=== PATIENT | female | born 1945 | race Caucasian/White ===

== ENCOUNTER → 2017-08-21 | Outpatient (CLI) | payer MEDICARE ==
[~2017-08-21] MED LIST: ACET325T14 PO; ASPI-496 PO; ATOR10TA PO; CYCL1DRO EACHEYE; LISI-170 PO; MULT-464 PO; OMEP20CA9 PO; SENN-52 PO; TIOT18CA INH
== END | disposition home or self-care (01) ==
LOC: CFH 09:53
PROVIDERS: ATTEND Registered Nurse
DX: J43.2 Centrilobular emphysema (principal); I70.0 Atherosclerosis of aorta; I70.90 Unspecified atherosclerosis; N28.1 Cyst of kidney, acquired; M85.80 Other specified disorders of bone density and structure, unspecified site; D17.79 Benign lipomatous neoplasm of other sites; Z85.118 Personal history of other malignant neoplasm of bronchus and lung; Z98.890 Other specified postprocedural states
CPT/HCPCS: 71250

== ENCOUNTER → 2017-09-11 | Outpatient (CLI) | payer MEDICARE ==
[~2017-09-11] MED LIST changes: +REGADENOSON 0.4 MG/5 ML SYRINGE ONE
== END | disposition home or self-care (01) ==
LOC: RAD 08:20
PROVIDERS: ATTEND Internal Medicine Cardiovascular Disease
DX: I07.1 Rheumatic tricuspid insufficiency (principal); E78.5 Hyperlipidemia, unspecified; J44.9 Chronic obstructive pulmonary disease, unspecified; Z87.891 Personal history of nicotine dependence; Z85.118 Personal history of other malignant neoplasm of bronchus and lung
CPT/HCPCS: 78452; 93017; 93306; A9502; J2785

== ENCOUNTER → 2018-03-12 | Outpatient (CLI) | payer MEDICARE ==
[~2018-03-12] MED LIST changes: -REGADENOSON 0.4 MG/5 ML SYRINGE ONE
== END | disposition home or self-care (01) ==
LOC: CFH 11:08
PROVIDERS: ATTEND Nurse Practitioner Primary Care
DX: Z12.31 Encounter for screening mammogram for malignant neoplasm of breast (principal)
CPT/HCPCS: 77067

== ENCOUNTER → 2018-07-18 | Outpatient (CLI) | payer MEDICARE | END | disposition home or self-care (01) | LOC: CFH 09:32 | PROVIDERS: ATTEND Internal Medicine Critical Care Medicine | DX: J43.2 Centrilobular emphysema (principal); R91.1 Solitary pulmonary nodule; Z85.118 Personal history of other malignant neoplasm of bronchus and lung | CPT/HCPCS: 71250 ==

== ENCOUNTER 2019-03-09 13:57 | Outpatient (CLI) | payer MEDICARE | END 2019-03-09 23:59 | disposition home or self-care (01) | LOC: WOUND 13:57 | PROVIDERS: ATTEND Internal Medicine | DX: I87.312 Chronic venous hypertension (idiopathic) with ulcer of left lower extremity (principal); L97.222 Non-pressure chronic ulcer of left calf with fat layer exposed; L03.116 Cellulitis of left lower limb; E78.5 Hyperlipidemia, unspecified; J44.9 Chronic obstructive pulmonary disease, unspecified; M81.0 Age-related osteoporosis without current pathological fracture; K21.9 Gastro-esophageal reflux disease without esophagitis; Z87.891 Personal history of nicotine dependence; Z90.710 Acquired absence of both cervix and uterus; Z85.118 Personal history of other malignant neoplasm of bronchus and lung | CPT/HCPCS: 11042; G0463 ==

== ENCOUNTER 2019-03-16 14:34 | Outpatient (CLI) | payer MEDICARE | END 2019-03-16 23:59 | disposition home or self-care (01) | LOC: WOUND 14:34 | PROVIDERS: ATTEND Internal Medicine | DX: I87.312 Chronic venous hypertension (idiopathic) with ulcer of left lower extremity (principal); L97.222 Non-pressure chronic ulcer of left calf with fat layer exposed; L03.116 Cellulitis of left lower limb; E78.5 Hyperlipidemia, unspecified; J44.9 Chronic obstructive pulmonary disease, unspecified; M81.0 Age-related osteoporosis without current pathological fracture; K21.9 Gastro-esophageal reflux disease without esophagitis; Z87.891 Personal history of nicotine dependence; Z90.710 Acquired absence of both cervix and uterus; Z85.118 Personal history of other malignant neoplasm of bronchus and lung | CPT/HCPCS: 97597 ==

== ENCOUNTER 2019-04-06 10:57 | Outpatient (CLI) | payer MEDICARE | END 2019-04-06 23:59 | disposition home or self-care (01) | LOC: WOUND 10:57 | PROVIDERS: ATTEND Internal Medicine | DX: I87.312 Chronic venous hypertension (idiopathic) with ulcer of left lower extremity (principal); L97.222 Non-pressure chronic ulcer of left calf with fat layer exposed; L03.116 Cellulitis of left lower limb; E78.5 Hyperlipidemia, unspecified; J44.9 Chronic obstructive pulmonary disease, unspecified; M81.0 Age-related osteoporosis without current pathological fracture; K21.9 Gastro-esophageal reflux disease without esophagitis; Z87.891 Personal history of nicotine dependence; Z90.710 Acquired absence of both cervix and uterus; Z85.118 Personal history of other malignant neoplasm of bronchus and lung | CPT/HCPCS: 15271; Q4101 ==

== ENCOUNTER 2019-08-05 12:46 | Outpatient (CLI) | payer MEDICARE | END 2019-08-05 23:59 | disposition home or self-care (01) | LOC: CFH 12:46 | PROVIDERS: ATTEND Registered Nurse | DX: J43.2 Centrilobular emphysema (principal); J96.11 Chronic respiratory failure with hypoxia; R91.8 Other nonspecific abnormal finding of lung field; N28.89 Other specified disorders of kidney and ureter; Z85.118 Personal history of other malignant neoplasm of bronchus and lung | CPT/HCPCS: 71250 ==

== ENCOUNTER 2019-09-09 10:03 | Day surgery (SDC) | payer MEDICARE ==
[~2019-09-09] VITALS: Ht 149.9 cm; Wt 58.2 kg
[2019-09-09 10:30] VITALS: BP 142/80
[2019-09-09] MEDS ORDERED: SODIUM CHLORIDE 0.9% 1,000 ML IV ONE (10:36)
[2019-09-09] MEDS ORDERED: FENTANYL PF 100 MCG/2ML ONE ×2 (11:38→11:39)
[2019-09-09] MEDS ORDERED: NALOXONE 1 MG/ML, 2ML ONE (11:39)
[2019-09-09] MEDS ORDERED: FLUMAZENIL 0.1 MG/1 ML, 5ML ONE (11:39)
[2019-09-09] MEDS ORDERED: MIDAZOLAM 1 MG/ML, 5ML ONE (11:39)
[2019-09-09] MEDS ORDERED: LIDOCAINE 1%, 10ML ONE (12:52)
[2019-09-09] MEDS ORDERED: HYDROcodone/APAP 5/325 TABLET ONE (14:53)
[2019-09-09] MEDS ORDERED: HYDROcodone/APAP 5/325 TABLET PO ONE (15:00)
== END 2019-09-09 18:00 | disposition home or self-care (01) ==
LOC: OUT 10:03 → EDSTATUS 12:00 → OUT 18:00
PROVIDERS: ATTEND Registered Nurse
DX: J98.4 Other disorders of lung (principal); I10 Essential (primary) hypertension; J44.9 Chronic obstructive pulmonary disease, unspecified; E78.5 Hyperlipidemia, unspecified; E66.9 Obesity, unspecified; I65.23 Occlusion and stenosis of bilateral carotid arteries; E78.49 Other hyperlipidemia; F17.210 Nicotine dependence, cigarettes, uncomplicated; Z85.118 Personal history of other malignant neoplasm of bronchus and lung; Z79.899 Other long term (current) drug therapy; Z88.5 Allergy status to narcotic agent; Z68.28 Body mass index [BMI] 28.0-28.9, adult
CPT/HCPCS: 32405; 32557; 71045; 77012; 88172; 88305; 99156; 99157; C1729; J2250; J3010; J7030; J2310

== ENCOUNTER 2019-09-12 09:03 | Outpatient (CLI) | payer MEDICARE ==
[2019-09-15] MEDS ORDERED: ACET325T26 PO ×2 (11:52)
== END 2019-09-12 23:59 | disposition home or self-care (01) ==
LOC: RAD 09:03
PROVIDERS: ATTEND Radiology Diagnostic Radiology
DX: J98.4 Other disorders of lung (principal)
CPT/HCPCS: 71045

== ENCOUNTER → 2020-11-30 | Outpatient (CLI) | payer MEDICARE ==
[~2020-11-30] MED LIST changes: +ACET325T26 PO; +ALBU0.63 NEB; +ALEN70TA77 PO; +AMLO-150 PO; +CALC-451 PO; +METH-639 PO; +OXYC1TAB17 PO; +biotin
== END | disposition home or self-care (01) ==
LOC: CFH 10:22
PROVIDERS: ATTEND Registered Nurse
DX: Z12.2 Encounter for screening for malignant neoplasm of respiratory organs (principal); F17.211 Nicotine dependence, cigarettes, in remission; J43.9 Emphysema, unspecified; I70.0 Atherosclerosis of aorta; I25.10 Atherosclerotic heart disease of native coronary artery without angina pectoris; N28.1 Cyst of kidney, acquired; M85.88 Other specified disorders of bone density and structure, other site; J98.4 Other disorders of lung; R91.1 Solitary pulmonary nodule
CPT/HCPCS: 71271

== ENCOUNTER 2020-12-01 21:42 | Inpatient (IN) | payer MEDICARE ==
[~2020-12-01] VITALS: Ht 144.8 cm; Wt 62.5 kg
[~2020-12-01 21:42] MED LIST changes: -ALBU0.63 NEB; -ALEN70TA77 PO; -AMLO-150 PO; -CALC-451 PO; -METH-639 PO; -OXYC1TAB17 PO; -biotin
[2020-12-01] MEDS ORDERED: SODIUM CHLORIDE 0.9% 1,000 ML IV ONE (22:00)
[2020-12-01] MEDS ORDERED: SODIUM CHLORIDE FLUSH 10ML SYR IVF ONE (22:00)
--- NOTE | 2020-12-01 22:19 | NUR ---
Labs drawn, IV large bore placed, lab here for pink top. Pt awake alert and oriented, stool ob negative chapperoned dr page for rectal.
[2020-12-01 22:22] LABS: MEAN CORPUSCULAR HEMOGLOBIN 16.6 pg (27.0-34.8); MEAN PLATELET VOLUME 8.6 fL (7.4-10.4); PLATELET COUNT 408 x10^3/uL (130-400); RED BLOOD COUNT 3.11 x10^6/uL (3.82-5.3); RED CELL DISTRIBUTION WIDTH 19.7 % (9.6-15.2)
[2020-12-01 22:34] LABS: ALANINE AMINOTRANSFERASE 14 U/L (12-78); ALBUMIN 3.6 g/dL (3.4-5.0); ANION GAP 8 mmol/L (5-15); CALCIUM 8.9 mg/dL (8.5-10.1); CHLORIDE 110 mmol/L (98-107); CREATININE 0.85 mg/dL (0.55-1.02)
[2020-12-01] MEDS ORDERED: AMLO-150 PO (22:35)
[2020-12-01] MEDS ORDERED: METH-639 PO (22:35)
[2020-12-01] MEDS ORDERED: biotin (22:35)
[2020-12-01] MEDS ORDERED: CALC-451 PO (22:35)
[2020-12-01] MEDS ORDERED: ALBU0.63 NEB (22:35)
[2020-12-01] MEDS ORDERED: ALEN70TA77 PO (22:35)
[2020-12-01] MEDS ORDERED: OXYC1TAB17 PO (22:35)
[2020-12-01 22:36] LABS: ALKALINE PHOSPHATASE 48 U/L (45-117); BILIRUBIN,TOTAL 0.2 mg/dL (0.2-1.0); TOTAL PROTEIN 6.5 g/dL (6.4-8.2)
[2020-12-01 22:44] LABS: MD YES; MEAN CORPUSCULAR HGB CONC 28.4 g/dL (32.4-35.8)
[2020-12-01 22:58] LABS: PROTHROMBIN TIME 10.7 Seconds (9.6-11.5)
[2020-12-01 23:01] LABS: ANISOCYTOSIS 1+; BAND#(MANUAL) 0.07 x10^3/uL; BANDS%(MANUAL) 1 % (0-7); BASOS#(MANUAL) 0.07 x10^3/uL (0-0.1); BASOS% (MANUAL) 1 % (0-1); EOS#(MANUAL) 0.44 x10^3/uL (0.0-0.4); EOS% (MANUAL) 6 % (1-7); HYPOCHROMIA 2+; LYMPH#(MANUAL) 1.41 x10^3/uL (1-3.4); LYMPHS% (MANUAL) 19 % (22-44); METAMYELOCYTES# (MANUAL) 0.15 x10^3/uL (0-0); METAMYELOCYTES% (MANUAL) 2 % (0-1); MICROCYTOSIS 2+; MONOS#(MANUAL) 0.22 x10^3/uL (0.3-2.7); MONOS% (MANUAL) 3 % (2-9); MYELOCYTES# (MANUAL) 0.07 x10^3/uL (0-0); MYELOCYTES% (MANUAL) 1 % (0-0); POLYCHROMASIA 1+; REACTIVE LYMPHS # (MANUAL) 0.15 x10^3/uL (0-0); REACTIVE LYMPHS % (MANUAL) 2 % (0-0); SEG#(MANUAL) 4.81 x10^3/uL (1.8-6.8); SEGS% (MANUAL) 65 % (42-75)
[2020-12-01 23:03] LABS: ECHINOCYTES 1+; OVALOCYTES 1+; SCHISTOCYTES 1+; TARGET CELLS 1+; TEAR DROPS 1+
[2020-12-01 23:04] LABS: <PLATELET ESTIMATE> INCREASED; LARGE PLATELETS 1+
--- NOTE | 2020-12-01 23:29 | NUR ---
Pt signed consent for blood tx,, ERP signed.. Waiting for cross matched blood, VSS.
[2020-12-01 23:53] LABS: PARTIAL THROMBOPLASTIN TIME < 23 Seconds (25-31)
[2020-12-01 23:56] LABS: ABSOLUTE RETICS # 0.067 x10^6/uL (0.5-2.5); RED BLOOD COUNT 3.07 x10^6/uL (3.82-5.3); RETICULOCYTE COUNT % 2.18 % (0.5-1.5)
[2020-12-02] VITALS (12 sets, daily range): BP systolic 137–160; BP diastolic 57–67
[2020-12-02] MEDS ORDERED: MELATONIN 5 MG TABLET PO PRN
[2020-12-02] MEDS ORDERED: ACETAMINOPHEN 325 MG TABLET PO PRN
[2020-12-02] MEDS ORDERED: ENALAPRILAT 1.25 MG/ML, 2ML IVPush PRN
[2020-12-02] MEDS ORDERED: DOCUSATE 100 MG CAPSULE PO PRN
--- NOTE | 2020-12-02 00:16 | NUR ---
2ND IV INFILTRATED, very very large hematoma to left hand. Pressure dressing applied, informed latoya onc rn to keep eye on it. Successful 2nd IV to left ac 18ga.
[2020-12-02] MEDS ORDERED: ATORVASTATIN 10 MG TABLET PO SCH (00:30)
[2020-12-02] MEDS ORDERED: ALBUTEROL SULFATE 2.5 MG/3 ML NEB PRN (00:30)
[2020-12-02 05:56] LABS: MEAN CORPUSCULAR HEMOGLOBIN 18.6 pg (27.0-34.8); MEAN PLATELET VOLUME 8.4 fL (7.4-10.4); PLATELET COUNT 339 x10^3/uL (130-400); RED BLOOD COUNT 3.32 x10^6/uL (3.82-5.3); RED CELL DISTRIBUTION WIDTH 23.4 % (9.6-15.2)
[2020-12-02 06:09] LABS: MD YES; MEAN CORPUSCULAR HGB CONC 29.8 g/dL (32.4-35.8)
[2020-12-02] MEDS ORDERED: ALENDRONATE 70 MG TABLET PO SCH (06:30)
[2020-12-02 06:37] LABS: <PLATELET ESTIMATE> ADEQUATE; ANISOCYTOSIS 1+; BAND#(MANUAL) 0.07 x10^3/uL; BANDS%(MANUAL) 1 % (0-7); BASOS#(MANUAL) 0.07 x10^3/uL (0-0.1); BASOS% (MANUAL) 1 % (0-1); EOS#(MANUAL) 0.21 x10^3/uL (0.0-0.4); EOS% (MANUAL) 3 % (1-7); LYMPH#(MANUAL) 1.17 x10^3/uL (1-3.4); LYMPHS% (MANUAL) 17 % (22-44); MICROCYTOSIS 2+; MONOS#(MANUAL) 0.55 x10^3/uL (0.3-2.7); MONOS% (MANUAL) 8 % (2-9); OVALOCYTES 1+; POLYCHROMASIA 1+; SEG#(MANUAL) 4.83 x10^3/uL (1.8-6.8); SEGS% (MANUAL) 70 % (42-75); TEAR DROPS 1+
[2020-12-02 06:38] LABS: LARGE PLATELETS 1+
[2020-12-02 06:39] LABS: HYPOCHROMIA 3+
[2020-12-02 06:43] LABS: TARGET CELLS 1+
[2020-12-02] MEDS: OXYcodone/APAP 7.5/325MG TABLET PO SCH ×4 (06:48→21:08)
[2020-12-02] MEDS: MULTIVITAMINS/MINERALS TABLET PO SCH (08:35)
[2020-12-02] MEDS: ASPIRIN 81 MG TABLET EC PO SCH (08:35)
[2020-12-02] MEDS: AMLODIPINE 5 MG TABLET PO SCH (08:36)
[2020-12-02] MEDS: LISINOPRIL 20 MG TABLET PO SCH (08:36)
[2020-12-02] MEDS: METHOCARBAMOL 500 MG TABLET PO SCH ×2 (08:36→21:08)
[2020-12-02] MEDS: CALCIUM/VITAMIN D3 250-125 TABLET PO SCH (08:36)
[2020-12-02] MEDS ORDERED: OMEPRAZOLE 20 MG CAPSULE.DR PO SCH (09:00)
[2020-12-02] MEDS: IRON SUCROSE COMPLEX 100MG/5ML IV SCH (12:00)
[2020-12-02] MEDS ORDERED: CALCIUM CARBONATE 500 MG TAB.CHEW PO PRN (12:00)
[2020-12-02] MEDS ORDERED: GOLYTELY 4,000ML ORAL.SOL PO ONE (14:00)
[2020-12-02 17:43] LABS: OCCULT BLOOD POSITIVE (NEGATIVE)
[2020-12-02] MEDS: OMEPRAZOLE 20 MG CAPSULE.DR PO SCH (21:09)
[2020-12-03 00:42] LABS: OCCULT BLOOD POSITIVE (NEGATIVE)
[2020-12-03 02:26] VITALS: BP 152/63
[2020-12-03] MEDS: OXYcodone/APAP 7.5/325MG TABLET PO SCH ×4 (05:23→16:00)
[2020-12-03 06:12] LABS: BASOPHILS % (AUTO) 1 % (0-1); EOSINOPHILS % (AUTO) 3 % (1-7); LYMPHOCYTES % (AUTO) 22 % (22-44); MEAN CORPUSCULAR HEMOGLOBIN 20.6 pg (27.0-34.8); MEAN CORPUSCULAR HGB CONC 31.1 g/dL (32.4-35.8); MEAN PLATELET VOLUME 8.5 fL (7.4-10.4); MONOCYTES % (AUTO) 11 % (2-9); NEUTROPHILS % (AUTO) 63 % (42-75); PLATELET COUNT 319 x10^3/uL (130-400); RED BLOOD COUNT 3.98 x10^6/uL (3.82-5.3); RED CELL DISTRIBUTION WIDTH 26.8 % (9.6-15.2)
[2020-12-03 07:02] LABS: MD MORPH REVIEW ONLY
[2020-12-03 07:31] LABS: ANISOCYTOSIS 2+; HYPOCHROMIA 3+; MICROCYTOSIS 2+; OVALOCYTES 1+
[2020-12-03 07:32] LABS: STOMATOCYTES 1+
[2020-12-03 07:33] LABS: <PLATELET ESTIMATE> ADEQUATE; <PLT MORPHOLOGY> NORMAL PLT MORPH; TEAR DROPS 1+
[2020-12-03] MEDS: AMLODIPINE 5 MG TABLET PO SCH ×2 (07:44→11:17)
[2020-12-03] MEDS: CALCIUM/VITAMIN D3 250-125 TABLET PO SCH (07:44)
[2020-12-03] MEDS: METHOCARBAMOL 500 MG TABLET PO SCH ×2 (07:44→11:17)
[2020-12-03] MEDS: OMEPRAZOLE 20 MG CAPSULE.DR PO SCH (07:44)
[2020-12-03] MEDS: ASPIRIN 81 MG TABLET EC PO SCH (07:44)
[2020-12-03] MEDS: MULTIVITAMINS/MINERALS TABLET PO SCH (07:44)
[2020-12-03] MEDS: LISINOPRIL 20 MG TABLET PO SCH ×2 (07:44→11:17)
[2020-12-03] MEDS: IRON SUCROSE COMPLEX 100MG/5ML IV SCH (09:00)
[2020-12-03] MEDS ORDERED: METOCLOPRAMIDE 5 MG/ML, 2ML IV PRN (09:30)
[2020-12-03] MEDS ORDERED: hydrALAzine 20 MG/ML, 1ML IV PRN (09:30)
[2020-12-03] MEDS ORDERED: HYDROmorphone 1 MG/ML, 1ML INJ IV PRN (09:30)
[2020-12-03] MEDS ORDERED: DIAZEPAM 5 MG/ML, 2ML IV PRN ×2 (09:30)
[2020-12-03] MEDS ORDERED: PROMETHAZINE 25 MG/ML, 1ML IV PRN (09:30)
[2020-12-03] MEDS ORDERED: ONDANSETRON 2MG/ML, 2ML IVPush PRN (09:30)
[2020-12-03] MEDS ORDERED: KETOROLAC 30 MG/1 ML IV PRN (09:30)
[2020-12-03] MEDS ORDERED: OXYcodone 5 MG/5 ML ORAL.SOL UDC PO PRN (09:30)
[2020-12-03] MEDS ORDERED: ALBUTEROL SULFATE 2.5 MG/3 ML NPPB PRN (09:30)
[2020-12-03] MEDS ORDERED: FENTANYL PF 100 MCG/2ML IV PRN (09:30)
[2020-12-03] MEDS ORDERED: MEPERIDINE/PF 25MG/0.5ML IVPush PRN (09:30)
[2020-12-03] MEDS ORDERED: LABETALOL 5MG/ML, 20ML IV PRN (09:30)
[2020-12-03] MEDS ORDERED: ALBUTEROL HFA 90 MCG/SPRAY ONE (09:53)
[2020-12-03 13:52] VITALS: BP 138/67
== END 2020-12-03 18:16 | disposition home or self-care (01) | DRG 378 ==
LOC: ED 22:12 → EDIP 12-02 00:09 → 3N 12-02 00:43
PROVIDERS: ADMIT Family Medicine; ATTEND Hospitalist
PROC: 30233N1 Transfusion of Nonautologous Red Blood Cells into Peripheral Vein, Percutaneous Approach (ICD-10-PCS; principal; 2020-12-02)
PROC: 0DB68ZX Excision of Stomach, Via Natural or Artificial Opening Endoscopic, Diagnostic (ICD-10-PCS; 2020-12-03)
PROC: 0DBN8ZZ Excision of Sigmoid Colon, Via Natural or Artificial Opening Endoscopic (ICD-10-PCS; 2020-12-03)
DX: K55.21 Angiodysplasia of colon with hemorrhage (principal); D62 Acute posthemorrhagic anemia; Z20.822 Contact with and (suspected) exposure to COVID-19; J44.9 Chronic obstructive pulmonary disease, unspecified; D17.5 Benign lipomatous neoplasm of intra-abdominal organs; D50.9 Iron deficiency anemia, unspecified; E78.5 Hyperlipidemia, unspecified; G89.29 Other chronic pain; I12.9 Hypertensive chronic kidney disease with stage 1 through stage 4 chronic kidney disease, or unspecified chronic kidney disease; K21.9 Gastro-esophageal reflux disease without esophagitis; K29.70 Gastritis, unspecified, without bleeding; K57.30 Diverticulosis of large intestine without perforation or abscess without bleeding; K63.5 Polyp of colon; K64.8 Other hemorrhoids; N18.9 Chronic kidney disease, unspecified; Z79.82 Long term (current) use of aspirin; Z79.891 Long term (current) use of opiate analgesic; Z80.3 Family history of malignant neoplasm of breast; Z85.118 Personal history of other malignant neoplasm of bronchus and lung; Z87.891 Personal history of nicotine dependence; Z90.710 Acquired absence of both cervix and uterus; Z98.1 Arthrodesis status; Z99.81 Dependence on supplemental oxygen; Z88.5 Allergy status to narcotic agent
CPT/HCPCS: 36415; 36430; 70450; 71045; 80053; 82272; 82728; 83540; 83550; 83615; 85025; 85045; 85610; 85730; 86850; 86900; 86923; 87635; 88305; 99291; G0378; J1756; J7030; P9016

== ENCOUNTER → 2020-12-15 | Outpatient (CLI) | payer MEDICARE ==
[~2020-12-15] MED LIST changes: +ALBU0.63 NEB; +ALEN70TA77 PO; +AMLO-150 PO; +CALC-451 PO; +METH-639 PO; +OXYC1TAB17 PO; +biotin
== END | disposition home or self-care (01) ==
LOC: PETCFH 09:40
PROVIDERS: ATTEND Registered Nurse
DX: R91.1 Solitary pulmonary nodule (principal); J44.9 Chronic obstructive pulmonary disease, unspecified; F17.211 Nicotine dependence, cigarettes, in remission; Z85.118 Personal history of other malignant neoplasm of bronchus and lung
CPT/HCPCS: 78815; A9552